=== PATIENT | female | born 1955 | race Caucasian/White ===

== ENCOUNTER 2019-04-16 09:22 | Emergency (ER) | payer OTHER ==
[2019-04-16 10:34] VITALS: BP 143/67
--- NOTE | 2019-04-16 11:12 | UC ---
Lower Extremity/Ankle HPI - HPI Summary HPI Summary: 63-year-old female comes in with a chief complaint of left great toe infection. She's had a callus there for quite some time. She sanded it down. Developed some erythema and drainage from the toe she is worried that is infected. Overall condition bothering her for months. She has seen Dr. Lloyd podiatry of the past. She has been feeling little bit more ill lately which she's not sure she has the flu or toe causing her to feel ill. - History of Current Complaint Chief Complaint: [place] Stated Complaint: LEFT GREAT TOE COMPLAINT Time Seen by Provider: 04/16/19 10:43 Pain Intensity: 0 - Allergies/Home Medications Allergies/Adverse Reactions: Allergies Allergy/AdvReac Type Severity Reaction Status Date / Time amoxicillin Allergy Rash Verified 04/16/19 10:21 Penicillins Allergy Rash Verified 04/16/19 10:21 Sulfa (Sulfonamide Allergy Unknown Verified 04/16/19 10:21 Antibiotics) Reaction Details Home Medications: Home Medications Cholecalciferol (Vitamin D3) [Vitamin D3] 2 cap PO DAILY 04/16/19 [History Confirmed 04/16/19] Furosemide TAB* [Lasix TAB*] 40 mg PO DAILY 04/16/19 [History Confirmed 04/16/19 ] Gabapentin CAP(*) [Neurontin 300 CAP(*)] 300 mg PO TID 04/16/19 [History Confirmed 04/16/19] Insulin Glargine,Hum.rec.anlog [Basaglar Kwikpen U-100] 50 units SUBCUT BID [History Confirmed 04/16/19] Insulin Lispro [Humalog] 50 - 60 units SUBCUT DAILY 04/16/19 [History Confirmed 04/16/19] Levothyroxine TAB* [Synthroid TAB*] 125 mcg PO QAM 04/16/19 [History Confirmed 04/16/19] Losartan Potassium [Cozaar] 50 mg PO DAILY 04/16/19 [History Confirmed 04/16/19] Vit A/Vit C/Vit E/Zinc/Copper [Preservision Areds Softgel] 1 each PO BID [History Confirmed 04/16/19] Vitamin E Mixed [Vitamin E] 400 unit PO DAILY 04/16/19 [History Confirmed ] PMH/Surg Hx/FS Hx/Imm Hx Previously Healthy: Yes - MORBID OBESITY Endocrine History: Diabetes, Hypothyroidism Cardiovascular History: Hypertension, Congestive Heart Failure - Surgical History Surgical History: Yes Surgery Procedure, Year, and Place: hysterectomy. cholecystectomy. I&D of inguinal abscess - Family History Known Family History: Positive: Non-Contributory - Social History Alcohol Use: None Substance Use Type: None Smoking Status (MU): Never Smoked Tobacco Review of Systems All Other Systems Reviewed And Are Negative: Yes Constitutional: Positive: Other - SEE HPI Skin: Positive: Other - SEE HPI Eyes: Positive: Negative ENT: Positive: Negative Respiratory: Positive: Negative Cardiovascular: Positive: Negative Gastrointestinal: Positive: Negative Motor: Positive: Negative Neurovascular: Positive: Negative Musculoskeletal: Positive: Negative Neurological: Positive: Negative Psychological: Positive: Negative Is Patient Immunocompromised?: No Physical Exam Triage Information Reviewed: Yes Appearance: Well-Appearing Vital Signs: Initial Vital Signs Temp 98.2 F 04/16/19 10:26 Pulse 110 04/16/19 10:26 Resp 22 04/16/19 10:26 BP 143/67 04/16/19 10:26 Pulse Ox 95 04/16/19 10:26 Vital Signs Reviewed: Yes Eye Exam: Normal Eyes: Positive: Conjunctiva Clear Neck: Positive: Supple Respiratory: Positive: No respiratory distress Musculoskeletal: Positive: Edema @ - B/L Neurological: Positive: Alert Psychological: Positive: Age Appropriate Behavior Skin: Positive: Other - Left great toe is erythematous and warm to touch. Normal capillary refill normal sensation. There is a large callus on the medial plantar aspect. Lower Extremity Course/Dx - Course Course Of Treatment: Food Services Coordinator: Mendoza Casillas F ([id number]) P 3 Armament/Ordnance Ima Technician: KLAUS ( KLAUS) Report Date: 04/16/2019 11:42:00 Report Status: Final ====== Start of Report Content Patient Name: VIOLETA TENA Medical Record#: [id number] Ordering Physician: Gomez Arreola MD Acct.#: [id number] : Age: 63 Sex: F Location: [facility] Exam Date: 04/16/19 1106 ADM Status: REG ER Order Information: TOE LEFT GREAT Accession Number: [id number] CPT: 64516 INDICATION: Infection evaluate for osteomyelitis. TECHNIQUE: 3 views of the left great toe were obtained. FINDINGS: There is soft tissue swelling adjacent to the first metacarpal, proximal and distal phalanges of the great toe. The bones are normal alignment. No erosive changes or periosteal reaction is seen. IMPRESSION: SOFT TISSUE SWELLING, NO SPECIFIC EVIDENCE FOR OSTEOMYELITIS. IF THERE IS A HIGH CLINICAL INDEX OF SUSPICION FOR OSTEOMYELITIS CONSIDER AN MRI STUDY WITHOUT CONTRAST OR A THREE-PHASE BONE SCAN. < Electronically signed by Mendoza Casillas MD in OV> 04/16/19 1138 Dictated By: Mendoza Casillas MD Dictated Date/Time: 04/16/19 1136 Transcribed Date/Time: 1136 Copy to: CC:Maryanne JAVED; Gomez Arreola MD Imaging - [facility] [address] [place] [address] ph [phone]) ph ([phone]) ph ([phone]) End of Report Content I discussed the x-rays with the patient. No sign [place] eyes on plain x-ray. I did explain this to the patient that MRI and bone scan are more sensitive to find osteomyelitis. Patient is allergic to penicillins and sulfa. Started the patient on doxycycline. Follow-up with podiatry. I let her know that if anything got worse with spread of infection or she felt ill that she needed to get further evaluation and care and emergency Department. I did explain to her if the infection remains or worsens she could have to have the toe amputated. - Differential Dx/Diagnosis Provider Diagnosis: Cellulitis of great toe of left foot Discharge ED - Sign-Out/Discharge Documenting (check all that apply): Patient Departure All imaging exams completed and their final reports reviewed: Yes - Discharge Plan Condition: Stable Disposition: HOME Prescriptions: DOXYcycline CAP(*) [DOXYcycline 100MG CAP(*)] 100 mg PO BID #20 cap Patient Education Materials: Cellulitis (ED) Referrals: Maryanne Edge PA [Primary Care Provider] - Lino Lloyd DPM [Doctor of Podiatric Medicine] - Additional Instructions: FOLLOW UP WITH PODIATRY. If the toe infection is not improving you may be at risk for the need of a toe amputation therefore, if you are not improving or getting worse you need further reevaluation right away either with the technology consultant or in the emergency department. GO TO THE EMERGENCY DEPARTMENT IF NOT IMPROVING OR WORSE; FEVER, SPREAD OF INFECTION, YOU FEEL ILL OR ANY QUESTIONS OR CONCERNS. - Billing Disposition and Condition Condition: STABLE Disposition: Home
== END 2019-04-16 12:28 | disposition home or self-care (01) ==
LOC: UCCORT 09:22
DX: L03.032 Cellulitis of left toe (principal); E11.9 Type 2 diabetes mellitus without complications; E03.9 Hypothyroidism, unspecified; I11.0 Hypertensive heart disease with heart failure; I50.9 Heart failure, unspecified; Z79.899 Other long term (current) drug therapy; Z79.4 Long term (current) use of insulin; Z79.890 Hormone replacement therapy
CPT/HCPCS: 99212; G0463